=== PATIENT | female | born 1970 | race American Indian/Alaskan Native ===

== ENCOUNTER 2024-12-31 10:44 | Day surgery (SDC) | payer MEDICARE, MEDICAID ==
[2024-12-31] MEDS ORDERED: KETAMINE 100 MG/ML (5ML VIAL) ONE (11:35)
[2024-12-31] MEDS ORDERED: Midazolam HCl 2 mg/2 ml Vial ONE ×2 (12:03→13:48)
[2024-12-31] MEDS ORDERED: Fentanyl 100 MCG/2 ML VIAL ONE ×2 (12:06→13:44)
[2024-12-31] MEDS ORDERED: PROPOFOL 20 ML ONE ×3 (12:06→13:50)
[2024-12-31] MEDS ORDERED: Ondansetron PF 4 MG/2 ML Vial ONE (12:06)
[2024-12-31] MEDS ORDERED: Lidocaine 1% PF 5 ML VIAL ONE ×2 (12:06→12:21)
[2024-12-31] MEDS ORDERED: Dexamethasone 4 mg/ml Vial ONE (12:06)
[2024-12-31] MEDS ORDERED: Glycopyrrolate 0.2 MG/ML 5 ML SYRINGE ONE (12:11)
[2024-12-31] MEDS ORDERED: Rocuronium Bromide 10 MG/ML (10ML VIAL) ONE (12:21)
[2024-12-31 12:25] LABS: Hemoglobin 9.6 g/dL (12.0-15.5); Mean Corpuscular Volume 90.4 fL (81.6-98.3); Mean Platelet Volume 9.2 fL (7.4-10.4); Platelet Count 266 10x3/uL (150-450); RBC Distribution Width 14.1 % (11.5-14.5); Red Blood Cell (RBC) Count 3.43 10x6/uL (3.90-5.03); White Blood Cell (WBC) Count 10.55 10x3/uL (3.5-10.5)
[2024-12-31 12:35] LABS: BHCG - Serum Negative (NEGATIVE); Pregs Control Background? CLEAR/WHITE (CLR/WHITE); Pregs Control Bar Appear? YES (CONTROL BAR)
[2024-12-31] MEDS ORDERED: Ciprofloxacin Lactate/D5W 400 MG in Premix 1 BAG IVPB SCH (13:00)
[2024-12-31] MEDS ORDERED: Dexmedetomidine 200 MCG/2 ML VIAL ONE (13:51)
== END 2024-12-31 14:46 | disposition home or self-care (01) ==
LOC: CSHSDC 10:44
PROVIDERS: ATTEND Otolaryngology
PROC: 09910ZZ Drainage of Left External Ear, Open Approach (ICD-10-PCS; principal; 2024-12-31)
DX: S00.432A Contusion of left ear, initial encounter (principal); E78.5 Hyperlipidemia, unspecified; F84.0 Autistic disorder; F31.9 Bipolar disorder, unspecified; K21.9 Gastro-esophageal reflux disease without esophagitis; Z88.2 Allergy status to sulfonamides; Z79.899 Other long term (current) drug therapy; X58.XXXA Exposure to other specified factors, initial encounter
CPT/HCPCS: 69000; 84703; 85027; J0744; J1100; J2250; J2405; J2704; J3010; 36415

== ENCOUNTER → 2025-01-06 | Day surgery (SDC) | payer MEDICARE, MEDICAID ==
[2025-01-05 15:06] VITALS: BMI 23.5
[~2025-01-06] MED LIST: Dexamethasone 20 MG/5 ML VIAL ONE; Dexmedetomidine 200 MCG/2 ML VIAL ONE; Fentanyl 100 MCG/2 ML VIAL ONE; KETAMINE 100 MG/ML (5ML VIAL) ONE; Midazolam HCl 2 mg/2 ml Vial ONE; Ondansetron PF 4 MG/2 ML Vial ONE; PROPOFOL 20 ML ONE
== END ==
LOC: CSHSDC 11:21
PROVIDERS: ATTEND Otolaryngology
PROC: 09910ZZ Drainage of Left External Ear, Open Approach (ICD-10-PCS; principal; 2025-01-06)
DX: H61.122 Hematoma of pinna, left ear (principal); K21.9 Gastro-esophageal reflux disease without esophagitis; E78.5 Hyperlipidemia, unspecified; F84.0 Autistic disorder; F31.9 Bipolar disorder, unspecified; D64.9 Anemia, unspecified; H40.9 Unspecified glaucoma; Z78.0 Asymptomatic menopausal state; Z88.0 Allergy status to penicillin; Z79.899 Other long term (current) drug therapy
CPT/HCPCS: 69005; J1100; J2250; J2405; J2704; J3010

== ENCOUNTER → 2025-01-13 | Day surgery (SDC) | payer MEDICARE, MEDICAID ==
[2025-01-12 12:19] VITALS: BMI 23.8
[~2025-01-13] MED LIST changes: -Dexamethasone 20 MG/5 ML VIAL ONE; +Glycopyrrolate 0.2 MG/ML 5 ML SYRINGE ONE; +Haloperidol Lactate 5 MG/ML VIAL SLOW IVP SCH; -KETAMINE 100 MG/ML (5ML VIAL) ONE; -Midazolam HCl 2 mg/2 ml Vial ONE; +Midazolam HCl 5 mg/5 ml Vial ONE; +Mupirocin 2% Ointment 22 GM Tube ONE; +Propofol 1,000 MG/100 ML VIAL IV ONE
== END ==
LOC: CSHSDC 10:59
PROVIDERS: ATTEND Otolaryngology
PROC: 09910ZZ Drainage of Left External Ear, Open Approach (ICD-10-PCS; principal; 2025-01-13)
DX: H61.122 Hematoma of pinna, left ear (principal); E78.5 Hyperlipidemia, unspecified; F84.0 Autistic disorder; F31.9 Bipolar disorder, unspecified; K21.9 Gastro-esophageal reflux disease without esophagitis; H40.9 Unspecified glaucoma; D64.9 Anemia, unspecified; Z88.2 Allergy status to sulfonamides; Z79.899 Other long term (current) drug therapy
CPT/HCPCS: 69005; J2250; J2405; J2704 ×2; J3010; J1630